=== PATIENT | female | born 1985 | race Caucasian/White ===

== ENCOUNTER → 2016-09-20 | Outpatient (CLI) | payer MEDICAID | LOC: CIMAGING 10:23 | PROVIDERS: ATTEND Physician Assistant Medical | DX: J32.9 Chronic sinusitis, unspecified (principal); J34.1 Cyst and mucocele of nose and nasal sinus; J34.2 Deviated nasal septum | CPT/HCPCS: 70486-PO ==

== ENCOUNTER 2016-10-14 09:54 | Observation (INO) | payer MEDICAID ==
[~2016-10-14 09:54] MED LIST: EPINEPHrine 30 MG/30 ML MDV ONE; LIDO/EPI 1% **Not for Epidural 20 ML MDV ONE; METHYLENE BLUE 0.5% 50 MG/10 ML AMP ONE; PROPOFOL 200 MG/20 ML VIAL ONE; fentaNYL 250 MCG/5 ML INJ ONE
[2016-10-14] MEDS ORDERED: METHYLENE BLUE 0.5% 50 MG/10 ML AMP ONE (10:02)
[2016-10-14] MEDS ORDERED: LIDO/EPI 1% **Not for Epidural 20 ML MDV ONE (10:02)
[2016-10-14] MEDS ORDERED: EPINEPHrine 30 MG/30 ML MDV ONE (10:13)
[2016-10-14] MEDS ORDERED: LR 1,000 ML IV ONE (10:22)
[2016-10-14] MEDS ORDERED: MIDAZOLAM 2 MG/2 ML VIAL ONE (10:44)
[2016-10-14 10:59] LABS: INR 1.17 (0.83-1.16); PROTIME(PATIENT) 14.9 SEC (12.0-15.0)
[2016-10-14] MEDS ORDERED: ceFAZolin 2 GM/DEXTROSE 100 ML IV ONE (11:30)
[2016-10-14] MEDS ORDERED: DEXAMETHASONE 10 MG/ML VIAL IVP ONE (11:30)
--- NOTE | 2016-10-14 13:07 | POSTOPPROG ---
Post Op Note Date of Operation: 10/14/16 Surgeon: Lisette Park Anesthesia: GET(General Endotracheal) Pre-op Diagnosis: nasal obstruction, vWD Post-op Diagnosis: same Procedure: endoscopically assisted septoplasty and SMR turbs Findings: large left nasal spur, enlarged ITs B Inf/Abcess present in the surg proc area at time of surgery?: No EBL: Minimal Complications: none apparent
[2016-10-14] MEDS ORDERED: fentaNYL 100 MCG/2 ML INJ ONE (13:15)
[2016-10-14] MEDS ORDERED: OXYCODONE/APAP 5/325 TAB PO PRN (13:18)
[2016-10-14] MEDS ORDERED: HYDROmorphONE/DILAUDID 1 MG/ML SYR ONE (13:59)
[2016-10-14] MEDS ORDERED: ONDANSETRON DISINTEGRATING 4 MG TAB PO PRN (15:09)
[2016-10-14] MEDS ORDERED: HYDROmorphONE/DILAUDID 1 MG/ML SYR IVP PRN (15:09)
[2016-10-14] MEDS ORDERED: ACETAMINOPHEN 325 MG TAB PO PRN (15:09)
[2016-10-14] MEDS ORDERED: LORazepam 0.5 MG TAB PO PRN (15:09)
[2016-10-14] MEDS ORDERED: ONDANSETRON 4 MG/2 ML VIAL IVP PRN (15:09)
[2016-10-14] MEDS ORDERED: MELATONIN 3 MG TAB PO PRN (15:11)
[2016-10-14] MEDS ORDERED: NON-FORMULARY NEW DRUG (Levonorgestrel [Mirena] 1 EACH) IY SCH (15:15)
--- NOTE | 2016-10-14 15:17 | PDGENHP ---
History and Physical - Chief Complaint s/p septoplasty - History of Present Illness 30 yo F with PMH of von Willebrand disease as well as nasal spur and nasal septum deviation s/p septoplasty being monitored overnight for bleeding. She has had bleeding issues in the past with procedures, but not for many years. She has taken DDAVP in the past as well as preoperatively today. At the time of my evaluation she is doing well post operatively, she is a bit somnolent but otherwise no complaints. She has a bit of a pain in her throat and feels as if she has to cough. She is not dizzy or light headed. She has no other complaints currently. History Information - Allergies/Home Medication List Allergies/Adverse Reactions: No Known Allergies Allergy (Unverified 10/11/16 14:17) Home Medications: Calcium Carb W/Vit D [Calcium Carb W/Vit D 500/200 (*)] 500 mg PO HS 10/14/16 [ Last Taken 10/09/16] Dexmethylphenidate HCl [FOCALIN XR] 20 mg PO MOTUWETHFR@0900 PRN 10/14/16 [Last Taken 10/09/16] Herbals/Supplements -Info Only 1 ea PO DAILY 10/14/16 [Last Taken Unknown] Levonorgestrel [Mirena] 1 each IY CONT 10/14/16 [Last Taken Unknown] Melatonin [Melatonin 3 MG (*)] 3 mg PO HS PRN 10/14/16 [Last Taken Unknown] I have personally reviewed and updated: family history, medical history, social history, surgical history - Past Medical History Additional medical history: von willebrands disease. deviated septum with nasal spur - Surgical History Reports: no pertinent surgical hx - Family History Positive for: non-pertinent - Social History Smoking Status: Never smoked Alcohol Use: Occasionally Drug Use: Marijuana Review of Systems ROS: 10pt was reviewed & negative except for what was stated in HPI & below Physical Exam Temp Pulse Resp BP Pulse Ox 36.9 C 72 16 114/65 95 10/14/16 14:03 10/14/16 14:03 10/14/16 14:03 10/14/16 14:03 10/14/16 14:03 Constitutional: no apparent distress, appears nourished Eyes: PERRL Ears, Nose, Mouth, Throat: moist mucous membranes Cardiovascular: regular rate and rhythym, no murmur, rub, or gallop, systolic murmur Respiratory: no respiratory distress, no rales or rhonchi Gastrointestinal: normoactive bowel sounds Skin: warm, normal color Musculoskeletal: no muscle tenderness Neurologic: AAOx3 Psychiatric: interacting appropriately, not anxious, not encephalopathic Lab Data & Imaging Review PT 14.9 SEC (12.0-15.0) 10/14/16 10:40 INR 1.17 (0.83-1.16) H 10/14/16 10:40 APTT 26.0 SEC (23.0-38.0) 10/14/16 10:40 Patient ABO/Rh O POSITIVE 10/14/16 10:40 Antibody Screen NEGATIVE 10/14/16 10:40 Visualized and Interpreted imaging results: Yes Interpretation: face CT with deviated septum, nasal spur Assessment & Plan Assessment: 30 yo F w/hx of vWd s/p septoplasty for deviated septum # vWd: has had DDAVP preoperatively. Oncology has been consulted with plans for repeat DDAVP if bleeding continues. Will monitor h/h. # deviated septum: s/p septoplasty as above # dispo: observation overnight Patient new to my care. Old records reviewed and summarized as above. Care plan reviewed with ENT including plans for onc consult.
[2016-10-14] MEDS ORDERED: OXYMETAZOLINE 30 ML NASAL SPRAY EACHNARE PRN (15:53)
--- NOTE | 2016-10-14 15:53 | GOP ---
[f rep st] OPERATIVE REPORT DATE OF OPERATION: 10/14/2016 SURGEON: Lisette Park MD ANESTHESIA: General. PREOPERATIVE DIAGNOSIS: 1. Nasal obstruction. 2. Allergic rhinitis. 3. Von Willebrand disease. POSTOPERATIVE DIAGNOSIS: 1. Nasal obstruction. 2. Allergic rhinitis. 3. Von Willebrand disease. PROCEDURE PERFORMED: 1. Endoscopically-assisted septoplasty. 2. Submucous resection of the inferior turbinates bilaterally. FINDINGS: Patient was found to have a very large spur obstructing the left side of the nasal cavity and narrowing this area significantly. She was also noted to have enlarged inferior turbinates bilaterally. Postoperatively, the spur was taken down as well as any other obstructing bony cartilaginous septum, and she had a significantly patent airway on both sides. ESTIMATED BLOOD LOSS: Minimal. INDICATIONS: The patient is a very pleasant 30-year-old woman who has a history of nasal obstruction. She has tried multiple medications as well as nasal sprays in the past without significant improvement. Exam shows a large spur on the left with a deviated nasal septum and some enlarged turbinates bilaterally. It was felt she would benefit from the above procedures. Prior to coming to preop she did get an infusion of DDAVP at [facility], and she will be admitted postoperatively for followup of her labs as well as possible need for another dose of DDAVP this afternoon. DESCRIPTION OF PROCEDURE: The patient was first seen in the preoperative area, where informed consent was obtained. She was then brought back to the operating room, where Anesthesia sedated and intubated her. The bed was turned 90 degrees. She was prepped and draped in normal fashion. Epi-soaked pledgets were placed within the nares bilaterally. These had previously been stained with methylene blue to differentiate the 1:1,000 epi from any other medication that would be injected. Once this had sufficient time to act, the epi pledgets were removed, and then about 6 cc of 1% lidocaine with 1:100,000 epinephrine was injected into the bilateral septum as well as the head of the inferior turbinates on both sides. At this point, I then used a speculum and a knife to make a left-sided hemitransfixion incision. A [place] was used to elevate the mucoperichondrial flap, and this was used to elevate all the way back to about a centimeter posterior to the bony cartilaginous junction. I was able to elevate this as well anterior and inferior to where the spur started, so that I was able to get underneath the spur until the tissue was completely released from this area. The 0 degree scope had also previously been used to take some preoperative photos. At this point, the scope was placed through the hemitransfixion incision, and it was used to help us elevate the mucoperichondrial flap a little bit further posteriorly as well as superiorly. Once this was done, the Areli was used to divide the bony cartilaginous junction inferiorly, and then a mucoperichondrial flap was elevated on the right side, thereby isolating the bone. A straight Trucut was then used to remove some bone posterior to that junction, and then a D knife was used to make an incision from posterior to anterior and superior to inferior, thereby releasing the area of concern of deviated cartilage. The mucoperichondrial flap was elevated off the other side , and then the cartilaginous piece was removed. An at least 1 cm strut was left dorsally and caudally for structure of the nose. At this point, I then used the 0 degree scope to get better visualization more posteriorly in the nose and the double-action Trucut was used to remove any bony deviation more posteriorly, taking care to elevate the mucoperichondrial flap on either side prior to doing this. At this point, then mostly what was left that was obstructing was the spur, so a 3 mm osteotome was used to take down that spur off the anterior nasal spine, and the spur was removed with [place] forceps. At this point, the scope was removed and used to visualize the nasal cavities bilaterally. It was noted to be significantly more patent on the left side. It continued to be very patent on the right side. At this point, the [place] instrument was used to infracture the inferior turbinates bilaterally and then a 2 mm turbinate microdebrider blade was placed , and a small stab incision was made first on the left side. A submucous resection was performed along the length of the inferior turbinates under direct visualization. Then, the debrider blade was removed. I then did the exact same thing on the right side. The debrider was removed and then the logging assistant instrument was used to outfracture the inferior turbinates bilaterally. Once this was done, the 4-0 plain gut on a Alli needle was used to place quilting sutures throughout the septum and then a 4-0 chromic was used to close the hemitransfixion incision in an interrupted fashion. The Méndez splints that had previously been cut to size were then placed on either side of the septum, and this was sutured into place at a caudal portion of the septum using a 3-0 Prolene. The nasal cavity was suctioned out and cleared of any blood, and then the patient was turned back over to Anesthesia, where she was awakened, extubated, and taken to PACU in stable condition. There were no complications, and all pledget and instrument counts were correct at the end of the procedure. COMPLICATIONS: None. /[id number]/MODL MTDD
[2016-10-14] MEDS: SODIUM CL NASAL 45 ML BTL EACHNARE SCH ×4 (16:06→21:49)
--- NOTE | 2016-10-14 18:49 | SOAPPROG ---
SOAP Progress Note Assessment/Plan: Assessment: The patient is a 30-year-old woman who is followed by my partner Dr. Deepa Ramirez for von Willebrand's disease. The patient currently required a septoplasty. I spoke with Dr. Park today. The surgery went well without excessive bleeding. The patient has a long history of von Willebrand's disease. She has used Stimate in the past but this is not an option because of her surgery. She appears to have type I von Willebrand's and is responsive to DDAVP. She has had difficulty with hyponatremia in the past. This is occurred when she has taken DDAVP 3 days in a row. The first time this occurred was when she was in college. She has used Amicar in the past. She has not required Humate-P. Currently she is not having excessive bleeding. I think we need to balance her previous history of severe hyponatremia with the need to control her bleeding. Her dressing is currently dry. She was seen at approximately 5 PM. I would propose checking her CBC and chemistry panel first thing in the morning. If her sodium is adequate, I will give her 1 more dose of DDAVP and then discharge her to home for close follow-up as an outpatient. If her sodium is low, I will need to determine whether she requires a dose of Humate-P. Dr. Ramirez called had last week to make sure we had Humate-P on hand. Plan: Check labs in the morning Reevaluate need for DDAVP versus Humate-P. 10/14/16 18:43 Subjective: Throat is a little sore. Dressing just changed. No current concerns voiced. Objective: Vital Signs Temp Pulse Resp BP Pulse Ox 36.3 C 87 16 124/76 H 96 10/14/16 18:29 10/14/16 18:29 10/14/16 18:29 10/14/16 18:29 10/14/16 18:29 10/12/16 10/13/16 10/14/16 23:59 23:59 23:59 Intake Total 200 Output Total 5 Balance 195 PT 14.9 SEC (12.0-15.0) 10/14/16 10:40 INR 1.17 (0.83-1.16) H 10/14/16 10:40 Physical Exam - Physical Exam General Appearance: alert, no apparent distress EENT: other (Dressing in place under her nose.) Respiratory: lungs clear Cardiac/Chest: regular rate, rhythm Skin: other (no unusual bleeding or bruising) ICD10 Worksheet Patient Problems: Problems Problem Status Onset Von Willebrand disease type IA Acute
[2016-10-14] MEDS: oxyCODONE IR 5 MG TAB PO PRN ×2 (20:09→21:41)
[2016-10-14 20:45] VITALS: O2SAT 96
[2016-10-15] MEDS: SODIUM CL NASAL 45 ML BTL EACHNARE SCH ×4 (00:31→11:46)
[2016-10-15 04:15] VITALS: RESP 16
[2016-10-15 04:59] LABS: % IMMATURE GRANULYOCYTES 0.4 % (0.0-1.1); ABSOLUTE IMMATURE GRANULOCYTES 0.06 10^3/uL (0.00-0.10); ADD DIFF? NO; ADD MORPH? NO; ADD SCAN? NO; ATYPICAL LYMPHOCYTE FLAG 10 (0-99); FRAGMENT RBC FLAG 0 (0-99); HEMOGLOBIN 11.2 g/dL (12.6-16.3); LEFT SHIFT FLG 0 (0-99); LIPEMIA HEMOLYSIS FLAG 80 (0-99); MEAN CELL HEMOGLOBIN 29.9 pg (27.9-34.1); MEAN CELL HEMOGLOBIN CONCENTR. 32.9 g/dL (32.4-36.7); MEAN CELL VOLUME 90.7 fL (81.5-99.8); MEAN PLATELET VOLUME 10.7 fL (8.7-11.7); PLATELET CLUMPS FLAG 10 (0-99); PLATELET COUNT 266 10^3/uL (150-400); RED BLOOD CELL COUNT 3.75 10^6/uL (4.18-5.33); RED CELL DISTRIBUTION WIDTH 13.1 % (11.5-15.2)
[2016-10-15 05:17] LABS: ANION GAP 5 mEq/L (8-16); CALCIUM 8.8 mg/dL (8.5-10.4); CARBON DIOXIDE 24 mEq/l (22-31); CHLORIDE 105 mEq/L (97-110); CREATININE 0.5 mg/dL (0.6-1.0); GLOMERULAR FILTRATION RATE > 60; GLUCOSE 85 mg/dL (70-100); POTASSIUM 3.8 mEq/L (3.5-5.2); SODIUM 134 mEq/L (134-144)
[2016-10-15] MEDS ORDERED: DESMOPRESSIN ACETATE 18 MCG in NS 50 ML IV ONE (07:00)
--- NOTE | 2016-10-15 07:06 | SOAPPROG ---
TIMOAP Progress Note Assessment/Plan: Assessment: The patient is a 30-year-old woman who is followed by my partner Dr. Deepa Ramirez for von Willebrand's disease. The patient currently required a septoplasty. I spoke with Dr. Park today. The surgery went well without excessive bleeding. The patient has a long history of von Willebrand's disease. She has used Stimate in the past but this is not an option because of her surgery. She appears to have type I von Willebrand's and is responsive to DDAVP. She has had difficulty with hyponatremia in the past. This is occurred when she has taken DDAVP 3 days in a row. The first time this occurred was when she was in college. She has used Amicar in the past. She has not required Humate-P. She has had expected nasal drainage over night. Her sodium is ok at 134 this AM. I'm going to give her one dose of DDAVP this AM and then can be discharged from the heme point of view. We will need to follow her up in the office on . I have placed orders in our office system to have ours schedulers call her to schedule an appointment. We will re check her CBC and CMP then. She will need to continue her fluid restriction for 24 hours after her last dose of DDAVP. Plan: DDAVP 18mcg this AM D/C to home after clearance by her other physicians F/U in or office 10/17/16 Subjective: Didn't sleep well. Had to change her dressing 3 or 4 times. Had a few clots but mostly serosanguineous drainage. No complaints of numbness/tingling. Objective: Vital Signs Temp Pulse Resp BP Pulse Ox 36.8 C 81 16 94/57 L 96 10/15/16 04:00 10/15/16 04:00 10/15/16 04:00 10/15/16 04:00 10/15/16 04:00 Laboratory Results 10/15/16 04:51 10/15/16 04:51 10/13/16 10/14/16 10/15/16 23:59 23:59 23:59 Intake Total 200 100 Output Total 5 Balance 195 100 PT 14.9 SEC (12.0-15.0) 10/14/16 10:40 INR 1.17 (0.83-1.16) H 10/14/16 10:40 Physical Exam - Physical Exam General Appearance: alert, mild distress EENT: other (small amout of serosang drainage on dressing changed 3 hours ago.) Respiratory: lungs clear Cardiac/Chest: regular rate, rhythm Neuro/Psych: normal mood/affect, oriented x 3 ICD10 Worksheet Patient Problems: Problems Problem Status Onset Von Willebrand disease type IA Acute
[2016-10-15] MEDS: oxyCODONE IR 5 MG TAB PO PRN ×2 (08:39→12:50)
--- NOTE | 2016-10-15 10:45 | SOAPPROG ---
SOAP Progress Note Assessment/Plan: Assessment: POD 1 septoplasty and SMR turbs. Admitted by hospitalist service d/t vWF deficiency. Has been seen by hematology. Got another dose of ddavp this am. has had some mild oozing though nothing significant. Post op sxs normal. Continue saline mist, can do afrin now to see if will dec congestion some though encouraged not to use regularly. WIll have her f/u 1 week to pull splints. Rx for abx and pain meds in her chart. Plan: 10/15/16 10:42 Subjective: Did well overall last night, hard to sleep. Feels really congested and has some facial pressure/RAMIREZ. Has had some mild ooze though no sig bleeding. Didn' t get ddavp last night though getting this am Objective: AVFSS RA drip pad in place no active bleeding NC with expected edema sutures and splints in place. Vital Signs Temp Pulse Resp BP Pulse Ox 36.9 C 80 16 107/66 96 10/15/16 07:26 10/15/16 07:26 10/15/16 07:26 10/15/16 07:26 10/15/16 07:26 Laboratory Results 10/15/16 04:51 10/15/16 04:51 10/14/16 10/15/16 10/16/16 05:59 05:59 05:59 Intake Total 300 Output Total 5 Balance 295 PT 14.9 SEC (12.0-15.0) 10/14/16 10:40 INR 1.17 (0.83-1.16) H 10/14/16 10:40 - Pending Discharge Pending Discharge Within 24 Hours: Yes Pending Discharge Date: 10/16/16 Pending Discharge Time: 11:00 ICD10 Worksheet Patient Problems: Problems Problem Status Onset Von Willebrand disease type IA Acute
[2016-10-15 11:54] VITALS: BP 99/67; PULSE 73; TEMP 98.6
--- NOTE | 2016-10-15 12:56 | PDDCSUM ---
Discharge Summary Discharge Summary: Dates of service 10/14-10/15/16 Procedures performed: septoplasty, resection turbinates Consultations: ENT, oncology Hospital course by problem: # vWd: has had DDAVP pre and post operatively. Oncology will follow up with patient after dc and follow sodium. Continue fluid restriction. # deviated septum: s/p septoplasty as above, will f/u with ENT in 1 week Dc home F/u with ENT/oncology as above
== END 2016-10-15 13:12 | disposition home or self-care (01) ==
LOC: FSGY 09:54 → F3E 14:57
PROVIDERS: ADMIT Internal Medicine; ATTEND Internal Medicine
PROC: 09BL4ZZ Excision of Nasal Turbinate, Percutaneous Endoscopic Approach (ICD-10-PCS; principal; 2016-10-14 11:00)
PROC: 09BM4ZZ Excision of Nasal Septum, Percutaneous Endoscopic Approach (ICD-10-PCS; principal; 2016-10-14 11:00)
DX: J34.89 Other specified disorders of nose and nasal sinuses (principal); J30.9 Allergic rhinitis, unspecified; D68.0 Von Willebrand disease
CPT/HCPCS: 30140; 30520; G0378; J1170; J2250; J2597; J2704; J3010; Q9968